=== PATIENT | male | born 1985 | race Two or more races ===

== ENCOUNTER 2022-01-19 10:14 | Emergency (ER) | payer BC ==
[~2022-01-19] VITALS: Ht 182.9 cm; Wt 100.2 kg
--- NOTE | 2022-01-19 10:23 | NUR ---
BIBS ACCOMPANIED BY SO/FAMILY W/ C/O PRESSURE-LIKE CHEST PAIN, INTERMITTENT, AND PALPITATION X2 WEEKS. PT A/O X4, AMBULATORY, TO ER BED 1.
--- NOTE | 2022-01-19 10:26 | NUR ---
DR REYNA AT BEDSIDE FOR EVAL
--- NOTE | 2022-01-19 10:29 | NUR ---
TECH AT BEDSIDE FOR EKG
[2022-01-19 10:51] LABS: BASOPHILS # (AUTO) 0.3 K/uL (0.0-0.2); BASOPHILS % (AUTO) 1.2 % (0.0-2.0); EOSINOPHILS % (AUTO) 0.3 % (0.0-6.0); HEMATOCRIT 44 % (39-51); HEMOGLOBIN 14.2 g/dL (13.5-17.5); LYMPHOCYTES # (AUTO) 2.5 K/uL (0.8-4.8); MEAN CORPUSCULAR HGB CONC 33 g/dl (31.0-36.0); MEAN CORPUSCULAR VOLUME 84 fL (80-96); MONOCYTES # (AUTO) 0.6 K/uL (0.1-1.30); MONOCYTES % (AUTO) 2.8 % (2.0-12.0); NEUTROPHILS # (AUTO) 17.4 K/uL (1.8-8.9); NEUTROPHILS % (AUTO) 83.7 % (43.0-81.0); PLATELET COUNT (AUTO) 217 K/uL (150-450); WHITE BLOOD COUNT (AUTO) 20.8 K/uL (4.3-11.0)
[2022-01-19 11:03] LABS: CALCIUM, SERUM 9.1 mg/dL (8.5-10.1); CARBON DIOXIDE 27 mmol/L (21-32); CHLORIDE 102 mmol/L (98-107); CREATININE 1.1 mg/dL (0.6-1.3); GLUCOSE 100 mg/dL (74-106); POTASSIUM 3.6 mmol/L (3.5-5.1); SODIUM SERUM 137 mmol/L (136-145); UREA NITROGEN, BLOOD 15 mg/dL (7-18)
--- NOTE | 2022-01-19 12:10 | NUR ---
TAKEN VIA WHEELCHAIR FOR XRAY
[2022-01-19] MEDS ORDERED: NAPR-1192 PO (13:21)
[2022-01-19] MEDS ORDERED: PROP10TA10 PO (13:41)
--- NOTE | 2022-01-19 13:46 | NUR ---
Patient discharged to home in stable condition. Written and verbal after care instructions given. Patient verbalizes understanding of instruction.IV removed. Catheter intact and site benign. Pressure and 4x4 applied to site. No bleeding noted.
[2022-01-19 13:47] VITALS: BP 122/77
== END 2022-01-19 13:47 | disposition home or self-care (01) ==
LOC: ER 10:33
DX: R07.89 Other chest pain (principal); R06.00 Dyspnea, unspecified
CPT/HCPCS: 36415; 71045-TC; 71046; 80048-TC; 84484-TC; 85025-TC